=== PATIENT | female | born 1995 | race American Indian/Alaskan Native ===

== ENCOUNTER 2019-08-09 15:25 | Emergency (ER) | payer OTHER ==
[2019-08-09 16:00] VITALS: BP 101/74
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
== END 2019-08-09 18:19 | disposition left against medical advice (07) ==
LOC: ED 15:25
DX: M54.2 Cervicalgia (principal); M54.9 Dorsalgia, unspecified; Z53.21 Procedure and treatment not carried out due to patient leaving prior to being seen by health care provider